=== PATIENT | female | born 1970 | race Caucasian/White ===

== ENCOUNTER 2019-04-18 22:30 | Emergency (ER) | payer OTHER ==
[~2019-04-18] VITALS: Ht 162.6 cm; Wt 68.0 kg
[2019-04-18] MEDS ORDERED: mag hydrox/Alum hydrox/simeth 30ml oral suspension PO ONE (23:10)
[2019-04-18] MEDS ORDERED: LIDOcaine Viscous 15ml cup MM ONE (23:10)
[2019-04-19 00:06] LABS: CLARITY,URINE CLEAR (Clear); COLOR,URINE YELLOW (Yellow); GLUCOSE, URINE NEGATIVE (Neg); KETONES,URINE NEGATIVE (Neg); LEUKOCYTE ESTERASE ,URINE NEGATIVE (Neg); NITRITES, URINE NEGATIVE (Neg); OCCULT BLOOD,URINE NEGATIVE (Neg); PROTEIN,URINE NEGATIVE (Neg); UROBILINOGEN,URINE 0.2 E.U/dL (0.2-1.0)
[2019-04-19 00:07] LABS: UA COLLECTION TYPE CLN CATCH MIDSTREAM
[2019-04-19 00:50] VITALS: BP 128/74
== END 2019-04-19 00:51 | disposition home or self-care (01) ==
LOC: ER 22:31
DX: R10.12 Left upper quadrant pain (principal); R42 Dizziness and giddiness; R20.0 Anesthesia of skin; I95.9 Hypotension, unspecified
CPT/HCPCS: 81003; 99283

== ENCOUNTER 2024-12-08 08:55 | Outpatient (CLI) | payer MEDICAID ==
--- NOTE | 2024-12-08 09:43 | RADIOLOGY REPORT ---
CLINICAL HISTORY: 54 years old, Female; SPRAIN OF INTERPHALANGEAL JOINT OF RIGHT LITTLE FINGER. TECHNIQUE: Multi sequence multi planar MRI images of the right hand were obtained without IV contrast. COMPARISON: None FINDINGS: No evidence of acute fracture or focal marrow contusion. No significant arthritic changes are seen. Flexor and extensor tendons appear intact without evidence of tear. There is mild tenosynovitis of the 5th digit flexor tendons at the level of the proximal phalanx. Possible mild tenosynovitis of the 5th digit extensor tendon near the level of the PIP joint. Ligamentous structures at the 5th digit MCP joint, PIP joint, and DIP joint appear intact, including collateral ligaments and dorsal and volar plates. IMPRESSION: 1. Mild tenosynovitis of the 5th digit flexor tendons at the level of the proximal phalanx. 2. Possible mild tenosynovitis of the 5th digit extensor tendon near the level of the PIP joint. 3. No evidence of tendon tear or ligament tear identified. 4. No acute osseous abnormality.
== END 2024-12-08 23:59 | disposition home or self-care (01) ==
LOC: MRI02 08:55
PROVIDERS: ATTEND Family Medicine Sports Medicine
DX: S63.636A Sprain of interphalangeal joint of right little finger, initial encounter (principal); M65.841 Other synovitis and tenosynovitis, right hand; M79.641 Pain in right hand; X58.XXXA Exposure to other specified factors, initial encounter; Y93.89 Activity, other specified; Y92.89 Other specified places as the place of occurrence of the external cause; Y99.8 Other external cause status
CPT/HCPCS: 73221